=== PATIENT | male | born 1970 | race Caucasian/White ===

== ENCOUNTER 2023-08-07 19:30 | Emergency (ER) | payer BC ==
[~2023-08-07] VITALS: Ht 188 cm; Wt 166.9 kg
[2023-08-07] MEDS ORDERED: mounjaro (19:54)
[2023-08-07] MEDS ORDERED: DEXTROSE 50% 50 ML DISP.SYRIN ONE (20:09)
[2023-08-07 20:11] LABS: BASOPHILS # (AUTO) 0.1 K/UL (0.0-0.2); BASOPHILS % (AUTO) 0.5 % (0.0-2.0); EOSINOPHILS # (AUTO) 0.2 K/uL (0.0-0.7); EOSINOPHILS % (AUTO) 1.8 % (0.0-7.0); HEMATOCRIT 39.6 % (36.7-47.1); HEMOGLOBIN 13.1 g/dL (12.5-16.3); LYMPHOCYTES # (AUTO) 1.8 K/uL (0.8-4.8); LYMPHOCYTES % (AUTO) 16.5 % (20.5-51.5); MEAN CORPUSCULAR HEMOGLOBIN 27.4 uug (23.8-33.4); MEAN CORPUSCULAR HGB CONC 33 g/dL (32.5-36.3); MONOCYTES % (AUTO) 9.2 % (0.0-11.0); PLATELET COUNT (AUTO) 278 K/uL (152-348); RED BLOOD CELL COUNT(AUTO) 4.77 MIL/uL (4.06-5.63); RED CELL DISTRIBUTION WIDTH 15.2 % (12.1-16.2)
[2023-08-07 20:12] LABS: DIFFERENTIAL COMMENT 1
[2023-08-07] MEDS: DEXTROSE 50% 50 ML DISP.SYRIN IV ONE (20:13)
[2023-08-07 20:36] LABS: ALBUMIN 3.2 g/dL (3.4-5.0); BILIRUBIN,TOTAL 0.3 mg/dL (0.2-1.0); CALCIUM 9.2 mg/dL (8.5-10.1); POTASSIUM 4.2 mmol/L (3.5-5.1); TOTAL PROTEIN, SERUM 7.3 g/dL (6.4-8.2)
[2023-08-07 20:37] LABS: LACTIC ACID 2.5 mmol/L (0.4-2.0)
[2023-08-07] MEDS: IV NS 1000 ML 1,000 ML IV ONE (20:58)
[2023-08-07 23:28] VITALS: BP 150/67; O2SAT 97
== END 2023-08-07 23:28 | disposition home or self-care (01) ==
LOC: ER 19:32
DX: E16.2 Hypoglycemia, unspecified (principal); I11.0 Hypertensive heart disease with heart failure; I50.9 Heart failure, unspecified; E11.9 Type 2 diabetes mellitus without complications; F32.A Depression, unspecified; Z79.899 Other long term (current) drug therapy; Z88.1 Allergy status to other antibiotic agents
CPT/HCPCS: 99285; 96374; 71045; 96361; 80053; 82248; 82962 ×2; 83880; 85025; 87040; 84484; 36415; 93005; 83605 ×2; J3490; J7040; A4606; A4663